=== PATIENT | male | born 1950 | race Two or more races ===

== ENCOUNTER 2018-11-19 18:06 | Emergency (ER) | payer BC, OTHER ==
[~2018-11-19] VITALS: Ht 172.7 cm; Wt 86.2 kg
[2018-11-19] MEDS ORDERED: TETRACAINE HCL 0.5% OPTH(EYE) SOLN 4ML RIGHTEYE ONE (20:00)
[2018-11-19] MEDS ORDERED: FLUORESCEIN SOD 1 MG TEST STRIP RIGHTEYE ONE (20:00)
[2018-11-19 20:34] VITALS: BP 125/72
== END 2018-11-19 20:52 | disposition home or self-care (01) ==
LOC: ER 18:11
DX: S05.01XA Injury of conjunctiva and corneal abrasion without foreign body, right eye, initial encounter (principal); W22.8XXA Striking against or struck by other objects, initial encounter; Y93.89 Activity, other specified; Y92.89 Other specified places as the place of occurrence of the external cause; Y99.8 Other external cause status